=== PATIENT | female | born 1970 | race Caucasian/White ===

== ENCOUNTER 2018-01-25 12:08 | Outpatient (REF) | payer OTHER, SELFPAY ==
[2018-01-25 19:16] LABS: Iron 80 ug/dL (50-175); Total Iron Binding Capacity 301 ug/dL (250-450); Transferrin Sat 27 % (15-50)
[2018-01-25 19:18] LABS: Hemoglobin A1C 5.3 % (4.5-6.2)
[2018-01-25 19:46] LABS: ALT 27 U/L (12-78); AST 27 U/L (15-37); Albumin 3.6 g/dL (3.4-5.0); Alkaline Phosphatase 54 U/L (46-116); Anion Gap 9.9 mmol/L (3-11); BUN 12 mg/dL (7-18); Bilirubin, Total 0.5 mg/dL (0.2-1.0); CO2 28.1 mmol/L (21.0-32.0); CREATININE 0.76 mg/dL (0.55-1.02); Chloride 105 mmol/L (98-107); Ferritin 83 ng/mL (8-388); Glucose 89 mg/dL (70-100); Magnesium 2.1 mg/dL (1.8-2.4); Potassium 4.1 mmol/L (3.5-5.1); Sodium 143 mmol/L (136-145); Total Protein 6.8 g/dL (6.4-8.2)
[2018-01-25 20:12] LABS: Folate > 20.0 ng/mL (8.6-20.0); Vitamin B12 > 2000 pg/mL (193-986)
[2018-01-25 20:21] LABS: PHOSPHORUS 3.8 mg/dL (2.6-4.7)
== END 2018-01-25 12:28 ==
LOC: NCHCN 12:08
PROVIDERS: PCP Physician Assistant Medical; Visit Provider Physician Assistant Medical
DX: Z98.84 Bariatric surgery status (principal); E03.9 Hypothyroidism, unspecified
CPT/HCPCS: 80053; 82607; 82728; 82746; 83036; 83540; 83550; 83735; 84100

== ENCOUNTER 2018-03-11 00:38 | Outpatient (CLI) | payer OTHER, SELFPAY ==
--- NOTE | 2018-03-11 12:37 | DI.US_ITS ---
SYMPTOM/DIAGNOSIS: MENORRHAGIA, N92.0 PELVIC ULTRASOUND: Transabdominal and transvaginal examination was performed. The uterus is heterogeneous and measures 7.8 cm long x 5 cm AP x 5.4 cm transverse. The uterus is retroverted. There are several hypoechoic and isoechoic masses within the uterus. The largest is seen in the posterior body and measures 2.3 cm maximally. These likely reflect fibroids. The endometrial stripe is within normal limits at 0.5 cm. The right ovary is unremarkable and measures 1.8 x 1.4 x 1.9 cm. There is blood flow seen to the right ovary. No evidence of torsion is present. The left ovary measures 2.7 x 1.2 x 2.2 cm. There is a 1.3 x 1.3 x 0.9 cm hypoechoic avascular non shadowing lesion in the left ovary. There is normal blood flow to the left ovary. No evidence of torsion is seen. No free pelvic fluid or hydronephrosis is identified. IMPRESSION: 1. Fibroid uterus 2. 1.3 cm hypoechoic region in the left ovary. This may represent a hemorrhagic or infected cyst. Solid mass cannot be excluded. Follow up pelvic ultrasound in 6-8 weeks is recommended for further evaluation.
== END 2018-03-11 00:58 ==
PROVIDERS: PCP Physician Assistant Medical; Visit Provider Nurse Practitioner Family
DX: N92.0 Excessive and frequent menstruation with regular cycle (principal); D25.9 Leiomyoma of uterus, unspecified; N83.292 Other ovarian cyst, left side
CPT/HCPCS: 76830; 76856

== ENCOUNTER 2018-03-28 09:46 | Outpatient (CLI) | payer OTHER, SELFPAY ==
[2018-03-28 10:51] LABS: HCT 42.5 % (36.0-46.0); HGB 14.2 g/dL (12.0-15.5); Mean Corp. HGB Concentration 33.4 g/dL (32.0-36.0); Mean Corpuscular Hemoglobin 30.1 pg (27.0-33.0); Mean Platelet Volume 11.4 fL (8.0-11.0); Platelet Count 282 x1000/uL (130-400); RBC 4.72 m/cumm (4.00-5.20); RBC Distribution Width 12.6 % (11.7-14.6); White Blood Cell Count 8.14 k/cumm (4.4-10.8)
[2018-03-28 11:00] LABS: Bilirubin Negative (Negative); Blood Negative (Negative); Clarity Clear; Glucose Negative (Negative); Ketones Negative (Negative); Leukocyte Esterase Negative (Negative); Nitrite Negative (Negative); Specific Gravity 1.025 (1.005-1.025); pH 6.5 (5-8)
[2018-03-28 14:51] LABS: HCG Quant, Pregnancy < 1 mIU/mL (1-3)
== END 2018-03-28 10:06 ==
LOC: PRC 09:47 → DSU 09:49
PROVIDERS: PCP Physician Assistant Medical; Visit Provider Obstetrics & Gynecology
DX: D25.9 Leiomyoma of uterus, unspecified (principal); N92.0 Excessive and frequent menstruation with regular cycle; I10 Essential (primary) hypertension; E03.9 Hypothyroidism, unspecified; Z01.818 Encounter for other preprocedural examination
CPT/HCPCS: 36415; 85027; 86850; 86900; 86901; 81003; 84702; 93005; 93010

== ENCOUNTER 2018-04-03 10:13 | Observation (INO) | payer OTHER, SELFPAY ==
--- NOTE | 2018-03-28 15:31 | HPE_ITS ---
Date of service: 04/03/18 Assessment and Plan (1) Uterine fibroid: Current visit: Yes Status: Acute Uterine fibroids causing menorrhagia Plan: Total Vaginal Hysterectomy with Bilateral Salpingectomy. Pt is aware that if we are not able to remove the uterus vaginally she may need to have a laparoscopy or laparotomy to completethe procedure. Pt expressed understanding and wants to proceed. History of Present Illness Chief Complaint: heavy periods Narrative: 47yo WF with LMP who has been followed for many yrs for menorrhagia. Pt had pelvic sono several yrs ago and was diagnosed with uterine fibroids. Pt states she is tiered of dealing with the heavy periods and is ready to have a permanent procedure done. Due to the diagnosis of uterine fibroids Pt is not a candidate for endometrial ablation and she did not want uterine artery embolization. Pt therefore wants to have a hysterectomy for her menorrhagia anduterine fibroids. The procedure was explained, risks were discussed and all questions were answered. Pt expressed understanding and wants to proceed with the suregery. 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) Surgical History S/P section (Acute) Status post bariatric surgery (Acute) Hx of breast reduction, elective (Acute) Hx of cholecystectomy (Chronic) Family History Mother Stroke Thyroid disease Father Hypertension Maternal Aunt Breast cancer Social History marital status: number of children: 2 Smoking/Tobacco Use Status: Never alcohol intake: current alcohol intake frequency: holidays/special occasions only Female Reproductive History Menstrual control method: permanent sterilization History History 2 Para 2 Hx # Term Pregnancies Multiple births Hx # Pregnancies Ectopic pregnancies AB induced Hx Number of Living Children AB spontaneous Meds Home Medications Medication Instructions Recorded Confirmed Type levothyroxine 137 mcg tablet 137 mcg PO DAILY 02/21/18 03/28/18 History metoprolol succinate ER 50 mg 50 mg PO DAILY 02/21/18 03/28/18 History tablet,extended release 24 hr biotin 10,000 mcg disintegrating 10,000 mcg PO DAILY 03/28/18 03/28/18 History tablet cholecalciferol (vitamin D3) 1,000 1,000 unit PO DAILY 03/28/18 03/28/18 History unit capsule cholecalciferol (vitamin D3) 2,000 2,000 unit PO DAILY 03/28/18 03/28/18 History unit capsule ferrous sulfate 325 mg (65 mg 325 mg PO DAILY tab 03/28/18 03/28/18 History iron) tablet vitamin B complex tablet 1 tab PO DAILY 03/28/18 03/28/18 History Allergies Allergy/AdvReac Type Severity Reaction Status Date / Time latex Allergy burning Verified 03/28/18 09:59 rash Sulfa (Sulfonamide Allergy Verified 03/28/18 15:15 Antibiotics) hydrocodone bitartrate AdvReac Severe vomiting Verified 03/14/18 15:49 [From Vicodin] oxycodone HCl [From Percocet] AdvReac Severe vomiting Verified 03/14/18 15:49 Exam Const General: cooperative, comfortable and no acute distress Nutritional Appearance: well nourished [facility] Head: normal to inspection and normocephalic General nose exam: external nose normal Face and sinus: normal facial exam Eyes General: appearance normal, both eyes and all related structures Alignment and Position: alignment normal EOM: EOM intact bilaterally Neck Neck: normal visual inspection, full ROM and no lymphadenopathy Thyroid: thyroid normal Chest Chest: normal inspection of the chest Breast inspection: normal inspection of the breasts and normal inspection of the axillae Breast palpation: normal palpation of the breasts Resp Effort & Inspection: normal respiratory effort Auscultation: clear to auscultation bilaterally Cardio Jugular venous pressure: no JVD Rate: regular rate Rhythm: regular rhythm GI Inspection: normal to inspection Palpation: soft and no hepatosplenomegaly Auscultation: normal bowel sounds External Female Exam: external appearance normal Speculum Exam - Vagina: normal appearance of the vagina Speculum Exam - Cervix: normal appearance of the cervix Bimanual Exam- Vagina & Uterus: normal bimanual exam Bimanual Exam- Adnexa, other: normal adnexae Back/Spine/Pelvis Back: no CVA tenderness Cervical Spine: normal cervical lordosis Thoracic/Lumbar Spine: thoracic and lumbar spine normal to inspection Skin General skin exam: no rashes or lesions noted Neuro General: alert, oriented x3 and CN's II-XI intact bilaterally Speech: speech normal Extrem General: normal to inspection Psych Appearance: grossly normal Mental Status: mental status grossly normal Mood: congruent mood Affect: normal affect Attitude: cooperative
[2018-04-03] VITALS (15 sets, daily range): BP systolic 92–134; BP diastolic 52–82; PULSE 45–66; RESP 14–20; TEMP 35.8–37.7; O2SAT 95–100
[2018-04-03] MEDS: Lactated Ringers 1,000 ML 125 ML IV ×3 (06:51→12:21)
[2018-04-03] MEDS: Celecoxib 200 MG CAP 400 MG PO (07:21)
[2018-04-03] MEDS: Acetaminophen 500 MG TAB 1000 MG PO (07:22)
[2018-04-03] MEDS: Gabapentin 300 MG CAP 600 MG PO (07:22)
--- NOTE | 2018-04-03 09:06 | UTER_PTH ---
PATIENT: Mariana Ricks LOC: U#:[id number] AGE/SX: 47/F ROOM: 229 RE04/03/[address]: Peri Schultz MD : [id number] BED: A DIS: 04/04/2018 SPEC #: [id number] RECD: 04/03/18 12:25 STATUS: DAVID REKatie #: [id number] TETE: 04/03/18 09:[address]: Peri Schultz DEPT: Surgical Specimen RECD BY: Samara Huerta ENTERED: 04/03/18 12:28 SP TYPE: UTER OTHR DR: Tamar Bell Tissues: 1 - UTERUS W OR W/O OVARIES(NOT TUMOR/PROLAPSE) 2 - FALLOPIAN TUBE (OTHER) Procedures: GROSS AND MICRO LEVEL 5 Comments: [id number]
--- NOTE | 2018-04-03 10:41 | W.PM.OP ---
Date of service: 04/03/18 Time of Service: 10:00 Operative Note DATE OF PROCEDURE: 04/03/18 PRE-OP DIAGNOSIS: Uterine Fiboids, Menorrhagia POST-OP DIAGNOSIS: same PROCEDURE: Total Vaginal Hysterectomy Bilateral salpingectomy SURGEON: Peri Schultz SHIRT HEMMER: Lani Bruno ESTIMATED BLOOD LOSS: 350 PATHOLOGY: other (uterus, right and left fallopian tubes) TOURNIQUET TIME: 0 COMPLICATIONS: None Patient was transported to: observation Patient's condition: stable Indications: Continued menorrhagia secondary to uterine fibroids Findings: Normal size, boggy uterus Procedure Description: The Patient was laid in a supine position and then General anesthesia with endotracheal intubation was perforemed. The Patient was then repositioned in a dorsolithotomy position on Be Stir-ups and prepped and draped in the usual sterile fashion. Pt had compression stockings in place through out the procedure. A weighted speculum was introduced into the vagina and teneculums were used to grasp the anterior and posterior lip of the cervix. The cervix was then circumscribed sharply with a knife. The posterior cul de sac was entered and a stay suture of 0 vicryl suture was placed. I was not able to enter the anterior cul de sac initially. So I grasped the left uteral sacral ligament with a curved roberto , cut it sharply with a knife and ligated it with a stitch of 0 vicryl suture. Curved roberto clamps and 0 vicryl suture were used throughout the procedure except on the peritoneum. This same procedure was repeated on the right side. I finally entered the anterior cul de sac and a right angle retractor was placed. Then in a systematic fashion working first on the left side and then on the right side, the uterine vessels, the cardinal ligaments and the rest of parametrium was clamped, cut and ligated until the the tubo-ovarian ligament was reached. Was the tubo-ovarian ligament on the left side was reached it was clamped and ligated x 3. The first 2 were bango ties and the third was a roberto stitch. This same procedure was repeated on the right side. The uterus was removed in total. Attention was then turned to the bilateral salpingectomy. Starting on the right side, the fallopian tube was entirely visualized but was noted to adherent to the side wall and ovary, therefore it had to be lysed away from the ovary and the side wasll and this was done with electro cautery. Once the fallopian tube was freed an roberto clamp was placed at the base and the fallopian tube was cut off and the base was ligated with 0 vicryl suture. Hemostasis was assured. The same procedure was repeated on the left side since the fallopian tube was adherent to the side wall as well. Careful inspection of the side christine and pedicles was done and hemostatsis was assured. The peritonium was then re-approximated using 3-0 vicryl suture in an purse string fashion making sure to externalize the pedicles. The vaginal cuff was then closed by putting an 0 vicryl suture, in a figure of 8 fashion around each of the utero sacral ligaments. The rest of the cuff was then closed using interrupted figure of 8s of the same suture. The procedure was then completed. A meraz catheter was placed and lots of clear urine was obtained. A vaginal pack coated premarin was placed into the vagina. There were no complications. The Patient tolerated the procedure well. EBL 350cc. Sponge, needle and instrument counts were correct. Patient was transferred to the recovery room in stable satisfactory condition.
--- NOTE | 2018-04-03 10:53 | ROE_ITS ---
Date of service: 04/03/18 Time of Service: 10:00 Operative Note DATE OF PROCEDURE: 04/03/18 PRE-OP DIAGNOSIS: Uterine Fiboids, Menorrhagia POST-OP DIAGNOSIS: same PROCEDURE: Total Vaginal Hysterectomy Bilateral salpingectomy SURGEON: Peri Schultz SURVEYING CREW RODMAN: Lani Bruno ESTIMATED BLOOD LOSS: 350 PATHOLOGY: other (uterus, right and left fallopian tubes) TOURNIQUET TIME: 0 COMPLICATIONS: None Patient was transported to: observation Patient's condition: stable Indications: Continued menorrhagia secondary to uterine fibroids Findings: Normal size, boggy uterus Procedure Description: The Patient was laid in a supine position and then General anesthesia with endotracheal intubation was perforemed. The Patient was then repositioned in a dorsolithotomy position on Be Stir-ups and prepped and draped in the usual sterile fashion. Pt had compression stockings in place thr ough out the procedure. A weighted speculum was introduced into the vagina and teneculums were used to grasp the anterior and posterior lip of the cervix. The cervix was then circumscribed sharply with a knife. The posterior cul de sac was entered and a stay suture of 0 vicryl suture was placed. I was not able to enter the anterior cul de sac initially. So I grasped the left uteral sacral ligament with a curved roberto , cut it sharply with a knife and ligated it with a stitch of 0 vicryl suture. Curved roberto clamps and 0 vicryl suture were used throughout the procedure except on the peritoneum. This same procedure was repeated on the right side. I finally entered the anterior cul de sac and a right angle retractor was placed. Then in a systematic fashion working first on the left side and then on the right side, the uterine vessels, the cardinal ligaments and the rest of parametrium was clamped, cut and ligated until the the tubo- ovarian ligament was reached. Was the tubo-ovarian ligament on the left side was reached it was clamped and ligated x 3. The first 2 were bango ties and the third was a roberto stitch. This same procedure was repeated on the right side. The uterus was removed in total. Attention was then turned to the bilateral salpingectomy. Starting on the right side, the fallopian tube was entirely visualized but was noted to adherent to the side wall and ovary, therefore it had to be lysed away from the ovary and the side wasll and this was done with electro cautery. Once the fallopian tube was freed an roberto clamp was placed at the base and the fallopian tube was cut off and the base was ligated with 0 vicryl suture. Hemostasis was assured. The same procedure was repeated on the left side since the fallopian tube was adherent to the side wall as well. Careful inspection of the side christine and pedicles was done and hemostatsis was assured. The peritonium was then re-approximated using 3-0 vicryl suture in an purse string fashion making sure to externalize the pedicles. The vaginal cuff was then closed by putting an 0 vicryl suture, in a figure of 8 fashion around each of the utero sacral ligaments. The rest of the cuff was then closed using interrupted figure of 8s of the same suture. The procedure was then completed. A meraz catheter was placed and lots of clear urine was obtained. A vaginal pack coated premarin was placed into the vagina. There were no complications. The Patient tolerated the procedure well. EBL 350cc. Sponge, needle and instrument counts were correct. Patient was transferred to the recovery room in stable satisfactory condition.
[2018-04-03] MEDS: Ketorolac 30 MG/ML VIAL IVP ×2 (16:15→23:45)
[2018-04-03] MEDS: Normal Saline Flush 10 ML SYR IV (16:16)
--- NOTE | 2018-04-03 17:15 | W.PM.PROGNOT ---
Date of Service Date of service: 04/03/18 Time of Service: 17:16 Assessment and Plan (1) Post-operative state: Start date: 04/03/18 Current visit: Yes Status: Acute POD # 0 doing well. Will continue to monitor and hopefully d/c home in am. Subjective Patient reports: no new complaints, feels better and pain is less Objective Objective Clinical Data: Vital Signs Temperature 98.4 F 04/03/18 16:01 Temperature Source Tympanic 04/03/18 16:01 Pulse 52 L 04/03/18 16:01 Pulse Rhythm Regular 04/03/18 12:20 Respiratory Rate 20 04/03/18 16:01 Respiratory Effort Non-Labored 04/03/18 12:20 Respiratory Depth Deep 04/03/18 12:20 Respiratory Pattern Normal 04/03/18 12:20 Blood Pressure 134/79 04/03/18 16:01 Pulse Oximetry 99 04/03/18 16:01 Respiratory End-tidal CO2 35 04/03/18 11:52 Oxygen Delivery Method Room Air 04/03/18 16:01 Oxygen Flow Rate 0 04/03/18 16:01 Pain Level 5 04/03/18 16:15 Intake & Output 04/02/18 04/03/18 04/03/18 23:59 11:59 23:59 Intake Total 1090 / 1759.333 669.333 / 1759.333 Output Total 825 / 1075 250 / 1075 Balance 265 / 684.333 419.333 / 684.333 Weight 172 lb 6.424 oz Intake: IV 1050 / 1719.333 669.333 / 1719.333 Oral 40 / 40 Output: Urine 475 / 725 250 / 725 Estimated Blood Loss 350 / 350 Other: Urine Color Yellow Yellow Urine Appearance Clear Clear Comment Murguia d/c'd per Pt request. Emesis Description None I was notified earlier in the afternoon that Pt had a low BP and was lethargic. Went to see her and she was alert, oriented x 3 and only c/o of slight pelvic pressure. Her BP 114/64, which is what she was running during the surgery. Therefore just ordered forher IV to be increased to 150 cc/hr. Pt now alert, talking with family. States feels much better but is not hungry.
[2018-04-03] MEDS: Lactated Ringers 1,000 ML 150 ML IV (19:33)
[2018-04-04] MEDS: Lactated Ringers 1,000 ML 150 ML IV (01:23)
--- NOTE | 2018-04-04 01:53 | NUR.NOTE ---
Nursing Note: 7P to 7A Shift: Pt is alert and oriented Needs supervision to bathroom due to IV pools. Complained of 6/10 pain ad toradol IVP was given and able to sleep. Continuous POx observed. O2 Sat is within 95 to 100% at room air. Latest temp is 37.5.Needs attended.call lights at reach.
--- NOTE | 2018-04-04 08:16 | W.PM.PROGNOT ---
Date of Service Date of service: 04/04/18 Time of Service: 08:17 Subjective Patient reports: no new complaints, feels better and tolerating a regular diet Interval history since last seen: Pt states she is doing well and is ready to go home. Adds that she does not need any pain medication. Exam Const General: cooperative, comfortable and no acute distress Resp Auscultation: clear to auscultation bilaterally Cardio Rate: regular rate Rhythm: regular rhythm Other: Vaginal pack removed and only slight amount of old blood noted. Objective Objective Clinical Data: Vital Signs Temperature 99.3 F 04/03/18 23:52 Temperature Source Tympanic 04/03/18 23:52 Pulse 56 L 04/03/18 23:52 Pulse Rhythm Regular 04/03/18 21:52 Respiratory Rate 18 04/03/18 23:52 Respiratory Effort Non-Labored 04/03/18 21:52 Respiratory Depth Deep 04/03/18 21:52 Respiratory Pattern Normal 04/03/18 21:52 Blood Pressure 133/79 04/03/18 23:52 Pulse Oximetry 96 04/03/18 23:52 Respiratory End-tidal CO2 35 04/03/18 11:52 Oxygen Delivery Method Room Air 04/03/18 23:52 Oxygen Flow Rate 0 04/03/18 23:52 Pain Level 6 04/03/18 23:45 Intake & Output 04/03/18 04/03/18 04/04/18 11:59 23:59 11:59 Intake Total 1090 / 2841.417 1751.417 / 2841.417 875 / 875 Output Total 825 / 1375 550 / 1375 200 / 200 Balance 265 / 0418.090 6241.417 / 1466.417 675 / 675 Weight 172 lb 6.424 oz Intake: IV 1050 / 2321.417 1271.417 / 2321.417 875 / 875 Oral 40 / 520 480 / 520 Output: Urine 475 / 1025 550 / 1025 200 / 200 Estimated Blood Loss 350 / 350 Other: Urine Color Yellow Yellow Yellow Urine Appearance Clear Clear Clear Comment Murguia d/c'd per Pt request. Emesis Description None Voiding Methods Toilet
--- NOTE | 2018-04-04 14:12 | PDOC.CMIN ---
- If Service Date Differs Date of service: 04/04/18 Time of Service: 14:12 Care Management Initial Assess REASON FOR HOSPITALIZATION:: S/P [facility] PAST MEDICAL HISTORY/PAST SURGICAL HISTORY:: Uterine fibroid (Acute). Hypertension (Chronic). Menorrhagia (Acute 09/02/13). Hypothyroidism, acquired (Acute 09/10/13). 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 S/P section (Acute). Status post bariatric surgery (Acute). Hx of breast reduction, elective (Acute). Hx of cholecystectomy (Chronic) PREVIOUS FUNCTIONAL STATUS/SOCIAL/FAMILY SUPPORTS:: Mariana resides with her Missael in [place]. She is independent at baseline, drives, and manages [employer] CURRENT FUNCTIONAL STATUS:: Currently Mariana is lying in bed, pleasant and receptive to discussion. ADVANCE DIRECTIVES:: None on file Has patient been provided with information about the portal?: Yes Did the patient sign up for the portal?: No CODE STATUS:: Full Code INSURANCE COVERAGE / FINANCIAL ISSUES:: Sandra CURRENT HOME/COMMUNITY SERVICES/EQUIPMENT:: Currently Mariana has no services or medical equipment in the community. PRIMARY CARE PHYSICIAN:: Tamar Bell POTENTIAL DISCHARGE NEEDS:: F/U appointment with Peri Schultz PATIENT/FAMILY EDUCATION NEEDS:: Review DC instructions, any limitations, and ongoing DC planning discussion. Discuss 'Ask Me Three' ANTICIPATED BARRIERS TO DISCHARGE:: None identified at this time TRANSPORTATION:: via private vehicle PLAN:: Mariana will return home with no anticipated services. She will F/U with Dr. Schultz and plan of care as prescribed. Mariana will transport via private vehicle.
--- NOTE | 2018-04-04 14:25 | CMDISCH_ITS ---
- If Service Date Differs Date of service: 04/04/18 Time of Service: 14:24 LACE Index Scoring Tool - Questions: Length of Stay (in days): 2 Acuity (Admit via E.D.?): No E.D. Visits: 0 - Answers: Total Score: 2 Risk of Readmission: Low Risk Care Management Discharge Reason for Hospitalization: S/P [facility] Discharge Plan: Mariana will return home with no anticipated services. She will F/U with Dr. Schultz and plan of care as prescribed. Mariana will transport via private vehicle. Patient/Family Education Needs: Review DC instructions, any limitations, and discuss 'Ask Me Three'
== END 2018-04-04 10:05 | disposition home or self-care (01) ==
LOC: SUR 10:39 → MS 11:39
PROVIDERS: Admitting Provider Obstetrics & Gynecology; PCP Physician Assistant Medical; Visit Provider Obstetrics & Gynecology
PROC: 0UT97ZZ Resection of Uterus, Via Natural or Artificial Opening (ICD-10-PCS; CPT 58260; principal; 2018-04-03 07:30)
DX: D25.1 Intramural leiomyoma of uterus (principal); E03.9 Hypothyroidism, unspecified; I10 Essential (primary) hypertension; N92.0 Excessive and frequent menstruation with regular cycle
CPT/HCPCS: 58262; NC; 88304; 88307; G0378; J0690; J1100; J1885; J2250; J2405; J2765

== ENCOUNTER 2018-07-24 17:44 | Outpatient (REF) | payer OTHER, SELFPAY ==
[2018-07-24 19:57] LABS: Abs Immature Grans 0.01 k/cumm (0.0-0.09); Absolute Basophil Count 0.02 k/cumm (0.0-0.2); Absolute Eosinophil Count 0.09 k/cumm (0.0-0.7); Absolute Lymphocyte Count 2.65 k/cumm (1.2-3.4); Absolute Neutrophil Count 4.16 k/cumm (1.2-6.7); Basophils % 0.3; Eosinophils % 1.2; HCT 41.2 % (36.0-46.0); HGB 13.5 g/dL (12.0-15.5); Immature Grans % 0.1; Lymphocytes % 35.2; Mean Corp. HGB Concentration 32.8 g/dL (32.0-36.0); Mean Corpuscular Hemoglobin 29.7 pg (27.0-33.0); Mean Corpuscular Volume 90.7 fL (80-95); Mean Platelet Volume 11.8 fL (8.0-11.0); Neutrophils % 55.2; Platelet Count 290 x1000/uL (130-400); RBC 4.54 m/cumm (4.00-5.20); RBC Distribution Width 12.5 % (11.7-14.6); White Blood Cell Count 7.53 k/cumm (4.4-10.8)
[2018-07-24 20:08] LABS: Iron 46 ug/dL (50-175); Total Iron Binding Capacity 323 ug/dL (250-450); Transferrin Sat 14 % (15-50)
[2018-07-24 20:41] LABS: ALT 16 U/L (12-78); AST 13 U/L (15-37); Albumin 3.5 g/dL (3.4-5.0); Alkaline Phosphatase 58 U/L (46-116); Anion Gap 7.1 mmol/L (3-11); BUN 18 mg/dL (7-18); Bilirubin, Total 0.3 mg/dL (0.2-1.0); CO2 28.9 mmol/L (21.0-32.0); CREATININE 0.84 mg/dL (0.55-1.02); Calcium 8.8 mg/dL (8.5-10.1); Chloride 104 mmol/L (98-107); Cholesterol 164 mg/dL (50-200); Ferritin 74 ng/mL (8-388); Glucose 78 mg/dL (70-100); HDL Cholesterol 61 mg/dL (40-60); LDL CHOLESTEROL 90 mg/dL (<100); Magnesium 2.1 mg/dL (1.8-2.4); Potassium 4.7 mmol/L (3.5-5.1); Sodium 140 mmol/L (136-145); TSH 0.49 uIU/mL (0.358-3.74); Total Protein 6.9 g/dL (6.4-8.2); Triglyceride 69 mg/dL (30-150); Vitamin B12 1259 pg/mL (193-986)
[2018-07-24 20:44] LABS: Folate > 20.0 ng/mL (8.6-20.0)
[2018-07-24 20:54] LABS: PHOSPHORUS 4.7 mg/dL (2.6-4.7)
[2018-07-24 20:56] LABS: Hemoglobin A1C 5.2 % (4.5-6.2)
== END 2018-07-24 18:04 ==
LOC: NCHCN 17:44
PROVIDERS: PCP Physician Assistant Medical; Visit Provider Physician Assistant Medical
DX: K91.2 Postsurgical malabsorption, not elsewhere classified (principal); E55.9 Vitamin D deficiency, unspecified; Z98.84 Bariatric surgery status; E03.9 Hypothyroidism, unspecified; I10 Essential (primary) hypertension
CPT/HCPCS: 80053; 80061; 82306; 83721; 82607; 82728; 82746; 83036; 83540; 83550; 83735; 84100; 84443; 85025

== ENCOUNTER 2019-01-20 01:02 | Outpatient (CLI) | payer OTHER, SELFPAY ==
--- NOTE | 2019-01-20 16:15 | DI.MAMMO_ITS ---
EXAM: MG MAMMO SCREENING CLINICAL HISTORY: [facility] Z00.00, SCREENING TECHNIQUE: Mammograms were interpreted according to the usual protocol including computer analysis w Flowge[employer] system, tomosynthesis and C-view imaging. FINDINGS: The breasts are of moderate density with fairly symmetrical distribution of fibroglandular tissue. No dominant mass or clumped microcalcification is identified in either breast. Current examination is c ompared with previous examinations including June 2016 and there has been no gross interval change i n appearance in comparison with the previous studies. IMPRESSION: No specific evidence of malignancy at this time. Routine screening examinations are suggested at y early intervals due to the family history of breast carcinoma. Category 1. Breast density, category B. BI-RADS Cat 1 - Negative. Breast Density - Category B - Scattered areas of fibroglandular density.
== END 2019-01-20 01:22 ==
PROVIDERS: PCP Physician Assistant Medical; Visit Provider Physician Assistant Medical
DX: Z12.31 Encounter for screening mammogram for malignant neoplasm of breast (principal); Z80.3 Family history of malignant neoplasm of breast
CPT/HCPCS: 77063; 77067

== ENCOUNTER 2021-06-23 20:18 | Outpatient (REF) | payer OTHER, SELFPAY | END 2021-06-23 20:19 | disposition home or self-care (01) | LOC: LBN 20:18 | PROVIDERS: PCP Physician Assistant Medical; Visit Provider Nurse Practitioner Gerontology | DX: N39.0 Urinary tract infection, site not specified (principal) | CPT/HCPCS: 87077; 87086; 87186 ==

== ENCOUNTER 2021-06-28 17:17 | Outpatient (REF) | payer OTHER, SELFPAY ==
[2021-06-29 01:04] LABS: COVID-19 RT-PCR UVMMC Result Negative (Negative)
== END 2021-06-28 17:18 | disposition home or self-care (01) ==
LOC: LBN 17:17
PROVIDERS: PCP Physician Assistant Medical; Visit Provider Obstetrics & Gynecology
DX: Z20.822 Contact with and (suspected) exposure to COVID-19 (principal)
CPT/HCPCS: U0003

== ENCOUNTER 2021-08-03 20:35 | Outpatient (REF) | payer OTHER, SELFPAY ==
[2021-08-04 02:22] LABS: COVID-19 RT-PCR UVMMC Result Negative (Negative)
== END 2021-08-03 20:36 | disposition home or self-care (01) ==
LOC: LBN 20:35
PROVIDERS: Nurse Anesthetist, Certified Registered; PCP Physician Assistant Medical
DX: Z20.822 Contact with and (suspected) exposure to COVID-19 (principal)
CPT/HCPCS: U0003

== ENCOUNTER 2021-08-11 08:00 | Outpatient (CLI) | payer OTHER, SELFPAY ==
[2021-08-11 10:48] LABS: Source Nasal/Nares
[2021-08-11 14:11] LABS: COVID-19 PCR Negative (Negative)
== END 2021-08-11 08:01 | disposition home or self-care (01) ==
LOC: LBO 08:00
PROVIDERS: PCP Physician Assistant Medical; Visit Provider Obstetrics & Gynecology
DX: Z20.822 Contact with and (suspected) exposure to COVID-19 (principal)
CPT/HCPCS: 87635

== ENCOUNTER 2021-12-20 12:00 | Outpatient (REF) | payer OTHER, SELFPAY | END 2021-12-20 12:01 | disposition home or self-care (01) | LOC: LBN 12:00 | PROVIDERS: PCP Physician Assistant Medical; Visit Provider Urology | DX: R31.9 Hematuria, unspecified (principal) | CPT/HCPCS: 87086 ==

== ENCOUNTER → 2022-03-07 02:00 | Outpatient (CLI) | payer OTHER, SELFPAY ==
--- NOTE | 2022-03-07 07:30 | DI.MRI_ITS ---
Exam(s) MR UPPER EXTREMITY RT WO EXAM: MR UPPER EXTREMITY RT WO CLINICAL HISTORY: RIF MASS, PAIN,mass rt hand, r22.31 TECHNIQUE: Multiplanar multisequence MRI was performed without intravenous contrast. COMPARISON: CR XR FINGER RIGHT from 02/18/2022 FINDINGS: BONES/JOINTS: No fracture or contusion pattern. No bone lesions identified. MUSCULOTENDINOUS STRUCTURES: The muscles show normal signal and size. No muscular fatty atrophy. SOFT TISSUES: There is a 4.6 mm long area of hypointense signal on the T2 and T1 weighted images at t he ulnar aspect of the PIP joint of the right index finger. This corresponds to the calcifications s een on the x-ray from 02/18/2022. The ulnar PIP collateral ligament is not well visualized and may b e torn. The radial PIP collateral ligament appears intact. No soft tissue mass is identified. OTHER FINDINGS: There is a 3.6 mm hypointense body in the soft tissues anterior to the distal phalanx of the ring finger. This may represent a foreign body. IMPRESSION: 1. No soft tissue mass or abnormal fluid collection. 2. 4.6 mm long hypointense signal at the ulnar aspect of the PIP joint of the right index finger whic h corresponds to the soft tissue calcification on the x-ray.This may reflect prior injury. 3. Nonvisualization of the ulnar collateral ligament of the PIP joint. This may represent ligament t ear. 4. No osseous lesion is identified. 5. 3.6 mm hypointense body in the soft tissues anterior to the distal phalanx of the right ring finge r which may represent a foreign body. Please correlate with the physical exam and clinical history. DATA REPOSITORY:
== END ==
PROVIDERS: PCP Physician Assistant Medical; Visit Provider Student in an Organized Health Care Education/Training Program
DX: R22.31 Localized swelling, mass and lump, right upper limb (principal); R93.89 Abnormal findings on diagnostic imaging of other specified body structures
CPT/HCPCS: 73218

== ENCOUNTER 2022-04-19 06:06 | Day surgery (SDC) | payer OTHER, SELFPAY ==
[2022-04-19 06:15] VITALS: BP 172/104; PULSE 96; RESP 18; TEMP 36.5; O2SAT 99
--- NOTE | 2022-04-19 07:33 | W.PM.DSUDISC ---
Date of service: 04/19/22 Time of Service: 07:35 Discharge Plan Disposition Patient Disposition: Home Condition: Good Discharge Details Reason For Visit: Right Index Finger Mass Attending Provider: Leobardo Tan Primary Care Provider: Tamar Bell Home Meds and New Rx's Prescriptions: New acetaminophen 500 mg tablet 500 mg PO Q6H PRN PRN (Reason: pain) Qty: 40 3RF ibuprofen 600 mg tablet 600 mg PO TID PRN (Reason: pain) Qty: 30 3RF Continued metoprolol succinate 50 mg tablet extended release 24 hr 50 mg PO DAILY levothyroxine [Synthroid] 137 mcg tablet 137 mcg PO DAILY cholecalciferol (vitamin D3) 2,000 unit capsule 2,000 unit PO DAILY cholecalciferol (vitamin D3) 1,000 unit capsule 1,000 unit PO DAILY vitamin B complex [B Complex-Vitamin B12] tablet 1 tab PO DAILY ferrous sulfate [Feosol] 325 mg (65 mg iron) tablet 325 mg PO DAILY biotin 10,000 mcg tablet,disintegrating 10,000 mcg PO DAILY flu vacc [id number] 6mos up(PF) 60 mcg (15 mcg x 4)/0.5 mL syringe 0.5 ml IM ONCE Qty: 0.5 0RF phenazopyridine [Pyridium] 100 mg tablet 100 mg PO TID PRN (Reason: pain) Qty: 10 0RF Discharge Instructions Additional Instructions: Activity: You may use the hand as tolerated. Light use of the index finger is okay but avoid doing too much too soon. You may apply ice. Dressings: You should keep the initial dressing on for 48 hours. After this, you may remove the dressing, get the wound wet and cover with a bandaid. Follow-up: 7-10 days. Activity:: Elevate Remove Dressings/Wound Care:: 48 hours Shower/Bathe:: 48 hours Diet:: As Tolerated Discharge Orders Discharge Orders: Discharge Order (Routine); Ordered 04/19/22 Ordered By: Leobardo Tan
[2022-04-19] MEDS: Lidocaine 1% Multi-Dose 10 ML VIAL (07:40)
[2022-04-19] MEDS: Sodium Bicarbonate 50 MEQ/50 ML VIAL (07:40)
[2022-04-19 07:58] VITALS: BP 172/107; PULSE 63; RESP 18; TEMP 36; O2SAT 100
--- NOTE | 2022-04-19 09:31 | W.PM.OP ---
Date of service: 04/19/22 Time of Service: 07:45 Operative Note Operative Note DATE OF PROCEDURE: 04/19/22 PRE-OP DIAGNOSIS: Right Index Finger Mass POST-OP DIAGNOSIS: same (Right Index Finger Dystrophic Calcification) PROCEDURE: Excision of Right Index Finger Mass (~1cm) SURGEON: Leobardo Tan ANESTHESIA TYPE: Local By Surgeon Refer to Anesthesia Record ESTIMATED BLOOD LOSS: 5 PATHOLOGY: none sent COMPLICATIONS: None Patient was transported to: same day Patient's condition: stable Indications: I have seen Mariana in clinic for symptoms mass about the ulnar aspect of the right index finger. The mass persisted and caused pain to direct contact and with use. There are some calcification seen on the x-ray and MRI confirmed that this was calcification without any significant soft tissue component to suggest malignancy. It was unclear whether this was dystrophic calcification versus foreign body reaction. Nevertheless, this was painful and prominent and she desired to have removed. I reviewed the risks of the procedure to include, but not limited to, bleeding, infection, pain, stiffness, recurrence, damage to nerves or vessels. Despite these risks, the patient elected to proceed. Findings: There is a rounded area of about 1 cm in diameter located over the base of the middle phalanx of the ulnar aspect of the index finger. Once in size there was a thick, white liquid material consistent with dystrophic calcification. This was removed and hole in the cystic capsule was also removed. Procedure Description: Mariana was greeted in the preoperative holding area where the correct side was identified and marked. The consent was reviewed with the patient and signed. All questions were answered. She was taken back to the operating room. The patient was placed into the supine position on the operating room table with the right arm on an arm board. All bony prominences were well padded. No prophylactic antibiotics were administered since this was a clean, elective hand surgical case. The right arm was then prepped with Chloraprep and draped in a standard fashion with stockinette and extremity drape. A timeout to confirm correct identity, side and site, procedure, allergies, anesthesia, and medical concerns was performed. A digital block was then performed using 1% lidocaine buffered with sodium bicarbonate. This was allowed time to set up completely and was tested before proceeding with the case. A longitudinal incision was then made overlying the mass in an ulnar parasagittal approach. The skin was incised sharply. Full-thickness flaps were then elevated to expose the mass. The mass was easily identifiable over the ulnar aspect of the finger and the relative safe zone. The overlying capsule this area was then incised and immediately there is a white, semiliquid material. This was consistent with a dystrophic calcification. This was evacuated completely. The capsule of this area was also removed. The wound was irrigated. Any other abnormal tissue was removed with a rongeur. Once again it was irrigated. Mass was completely. The skin was then closed using a #4-0 nylon in interrupted fashion. The finger was dressed with Xeroform, 4 x 4, conform dressing. The patient tolerated the procedure well and was returned to the Same Day Surgery area in a stable condition suffering no known complication.
== END 2022-04-19 08:15 | disposition home or self-care (01) ==
PROVIDERS: PCP Physician Assistant Medical; Visit Provider Student in an Organized Health Care Education/Training Program
PROC: (CPT 11421; principal; 2022-04-19 08:30)
DX: R22.31 Localized swelling, mass and lump, right upper limb (principal)
CPT/HCPCS: 11421

== ENCOUNTER 2022-04-26 11:14 | Outpatient (REF) | payer OTHER, SELFPAY | END 2022-04-26 11:15 | disposition home or self-care (01) | LOC: LBN 11:14 | PROVIDERS: PCP Physician Assistant Medical; Visit Provider Nurse Practitioner Gerontology | DX: N39.0 Urinary tract infection, site not specified (principal) | CPT/HCPCS: 87077; 87086; 87186 ==

== ENCOUNTER 2022-07-05 16:08 | Emergency (ER) | payer OTHER, SELFPAY ==
[2022-07-05 16:15] VITALS: BP 138/88; PULSE 74; RESP 18; TEMP 36.1; O2SAT 99
--- NOTE | 2022-07-05 16:30 | RT.EKG_ITS ---
APPROVED REPORT Exam: Resting ECG Reason for Exam: dizziness Patient Location: E HR:65 bpm ECG Measurements Heart Rate 65 AXIS OR 144 P 62 QRSd 86 QRS 8 QT 437 T 5 QTc 456 Conclusion Sinus rhythm...normal P axis, V-rate 60- 99 Probable left atrial enlargement...P >50mS, <-0.10mV V1
--- NOTE | 2022-07-05 16:42 | ED.GENADUL_ITS ---
Discharge Plan Disposition Patient Disposition: Home Condition: Stable Discharge Details Clinical Impression: Vertigo Primary Care Provider: Unknown,Unknown ED Provider: Magno Lacey Home Meds and New Rx's Prescriptions: New ondansetron 4 mg tablet,disintegrating 4 mg PO Q8H PRN (Reason: nausea and vomiting) Qty: 30 0RF Continued metoprolol succinate 50 mg tablet extended release 24 hr 50 mg PO DAILY levothyroxine [Synthroid] 137 mcg tablet 137 mcg PO DAILY cholecalciferol (vitamin D3) 2,000 unit capsule 2,000 unit PO DAILY cholecalciferol (vitamin D3) 1,000 unit capsule 1,000 unit PO DAILY vitamin B complex [B Complex-Vitamin B12] tablet 1 tab PO DAILY ferrous sulfate [Feosol] 325 mg (65 mg iron) tablet 325 mg PO DAILY biotin 10,000 mcg tablet,disintegrating 10,000 mcg PO DAILY Patient Comments: not taking phenazopyridine [Pyridium] 100 mg tablet 100 mg PO TID PRN (Reason: pain) Qty: 10 0RF Patient Comments: not taking fluconazole [Diflucan] 100 mg tablet 100 mg PO DIRECTED Qty: 2 0RF Patient Comments: not taking Rx Instructions: may repeat second dose 72 hrs after first dose if symptoms persist nitrofurantoin monohyd/m-cryst 100 mg capsule 100 mg PO Q12H Qty: 14 0RF Patient Comments: not taking Rx Instructions: must administer with a meal/food acetaminophen 500 mg tablet 500 mg PO Q6H PRN PRN (Reason: pain) Qty: 40 3RF ibuprofen 600 mg tablet 600 mg PO TID PRN (Reason: pain) Qty: 30 3RF Discharge Instructions Instructions: Vertigo (ED) Additional Instructions: your blood work did not show concerning findings at this time follow up with your primary care or specialist within 1-2 weeks if you feel more ill, have worsening symptoms or weakness return to the emergency department Stand Alone Forms: Work Release Medical Decision Making 51 yo female with hx of meniere's disease, htn, who comes in with cc of intermittent dizziness when turning her head. This is similar to her prior episodes associated with her meniere's disease and has been an intermittent issue for years now. She denies chest pain, dyspnea, fevers, chills. She has had nausea. She arrives stable caox4 speaking clearly. She has no focal motor or sensation deficits, normal speech, no droop, nih of 0. Her history and exam seem most consistent with peripheral vertigo and likely associated with her meniere's, will obtain ekg/troponin, cbc, cmp and trial ondansetron as she states this has helped before, declines meclizine at this time. Given lack of deficits on exam do not feel central vertigo likely and do not feel ct indicated labs reassuring, patient still with intermittent dizziness but feels somewhat better, ambulating with normal gait unassisted. Discussed with her and she feels comfortable with d/c, will f/u with her ent and return precautions given Differential Diagnosis Differential Diagnosis: meniere's, vertigo, anemia, electrolyte abnormality Lab Data Lab results reviewed: Yes I reviewed the patient's lab results. ECG Data Attestation: I personally reviewed and interpreted this ECG (s) as follows: Prior ECG tracings: not available for review Interpretation: sinus rhythm, rate of 65, pr 144, qtc 437 no acute ischemic findings HPI General Mode of arrival: ambulatory . Date/Time Provider Initiated Documentation: 07/05/22 16:09 . Limitations to Documentation: no limitations . Information obtained by: patient . History of Present Illness 51 year old F presents to the emergency department with the chief complaint of dizziness, described as moderate, Patient started experiencing this day(s) (1) and it has been intermittent. No relieving factors improve symptom(s), No exacerbating factors reported . Patient notes denies chest pain and fever/chills. Patient did receive the following treatments prior to arrival, none Related Data Home Medications Medication Instructions Recorded Confirmed levothyroxine 137 mcg tablet 137 mcg PO DAILY 02/21/18 07/05/22 (Synthroid) metoprolol succinate 50 mg 50 mg PO DAILY 02/21/18 07/05/22 tablet,extended release 24 hr biotin 10,000 mcg disintegrating 10,000 mcg PO DAILY 03/28/18 05/01/22 tablet cholecalciferol (vitamin D3) 25 1,000 unit PO DAILY 03/28/18 07/05/22 mcg (1,000 unit) capsule cholecalciferol (vitamin D3) 50 2,000 unit PO DAILY 03/28/18 07/05/22 mcg (2,000 unit) capsule ferrous sulfate 325 mg (65 mg 325 mg PO DAILY 03/28/18 07/05/22 iron) tablet (Feosol) vitamin B complex (B 1 tab PO DAILY 03/28/18 07/05/22 Complex-Vitamin B12 tablet) phenazopyridine 100 mg tablet 100 mg PO TID PRN pain #10 tabs 06/23/21 05/01/22 (Pyridium) acetaminophen 500 mg tablet 500 mg PO Q6H PRN PRN pain #40 tabs 04/19/22 07/05/22 ibuprofen 600 mg tablet 600 mg PO TID PRN pain #30 tabs 04/19/22 07/05/22 fluconazole 100 mg tablet 100 mg PO DIRECTED #2 tabs 04/26/22 05/01/22 (Diflucan) nitrofurantoin 100 mg PO Q12H #14 caps 04/26/22 05/01/22 monohydrate/macrocrystals 100 mg capsule ondansetron 4 mg disintegrating 4 mg PO Q8H PRN nausea and 07/05/22 tablet vomiting #30 tabs Previous Rx's Medication Instructions Recorded phenazopyridine 100 mg tablet 100 mg PO TID PRN pain #10 tabs 06/23/21 (Pyridium) acetaminophen 500 mg tablet 500 mg PO Q6H PRN PRN pain #40 tabs 04/19/22 ibuprofen 600 mg tablet 600 mg PO TID PRN pain #30 tabs 04/19/22 fluconazole 100 mg tablet 100 mg PO DIRECTED #2 tabs 04/26/22 (Diflucan) nitrofurantoin 100 mg PO Q12H #14 caps 04/26/22 monohydrate/macrocrystals 100 mg capsule ondansetron 4 mg disintegrating 4 mg PO Q8H PRN nausea and 07/05/22 tablet vomiting #30 tabs Allergies Allergy/AdvReac Type Severity Reaction Status Date / Time latex Allergy burning Verified 07/05/22 16:14 rash Sulfa (Sulfonamide Allergy Verified 07/05/22 16:14 Antibiotics) hydrocodone bitartrate AdvReac Severe vomiting Verified 07/05/22 16:14 [From Vicodin] oxycodone HCl [From Percocet] AdvReac Severe vomiting Verified 07/05/22 16:14 General Stated Complaint: Dizzy/Sync NIEVES: 3 Review of Systems All systems reviewed & are unremarkable except as noted in HPI and below Constitutional Constitutional: Denies chills and Denies fever(s) Cardiovascular Cardiovascular: Denies chest pain and Denies dyspnea Respiratory Respiratory: Denies cough and Denies dyspnea Gastrointestinal Gastrointestinal: Denies abdominal pain Integumentary/Breasts Skin/Breast: Denies rash PFSH All Active Problems (Updated 07/05/22 @ 18:25 by Magno Lacey MD) Vertigo (Acute) Hx of breast reduction, elective (Acute) Hx of cholecystectomy (Chronic) 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 Will D/C home today. Instructions given. No meds. needed. F/U in clinic in 6 weeks. If any problems please call clinic for appointment Hypertension (Chronic) S/P section (Acute) X 2 Status post bariatric surgery (Acute) Menorrhagia (Acute 09/02/13) Long standing worsening menorrhagia secondary to uterine fibroids. Desires permanent treatment and therefore desires hysterectomy. Plan a TVH/BS on 04/03/18. Have discussed case with Dr. Venegas who will assist in surgery. Will need medical clearance prior to surgery. Hypothyroidism, acquired (Acute 09/10/13) Medical History (Updated 07/05/22 @ 18:25 by Magno Lacey MD) Frequent UTI Surgical History (Updated 05/03/22 @ 18:26 by MADELINE Morfin) Finger mass, right Right index finger S/P Excision: 04/19/2022 Family History Mother Stroke Thyroid disease Father Hypertension Maternal Aunt Breast cancer Social History Smoking/Tobacco Use Status: Never Smoking risk assessment performed?: Yes Alcohol Intake: current Alcohol Intake frequency: holidays/special occasions only Drug use: Never Number of Children: 2 Do you feel safe at home: Yes Female Reproductive History Menstrual control method: permanent sterilization Menopause type: surgical History History 2 Para 2 Hx # Term Pregnancies Multiple births Hx # Pregnancies Ectopic pregnancies AB induced Hx Number of Living Children AB spontaneous Exam Const General: no acute distress Orientation: alert HENMT Head: normal to inspection Ears: external ears normal General nose exam: external nose normal Mouth: moist mucous membranes Eyes General: appearance normal, both eyes and all related structures Neck Neck: normal visual inspection Resp Effort & Inspection: normal respiratory effort and able to speak in complete sentences Cardio Rate: regular rate Skin General skin exam: no rashes or lesions noted Neuro General: patient alert and patient oriented x3 Extrem General: normal to inspection Psych Mental Status: mental status grossly normal Course Vital Signs Vital signs: Vital Signs Temperature 36.1 C L 07/05/22 16:15 Pulse 74 07/05/22 16:15 Respiratory Rate 18 07/05/22 16:15 Blood Pressure 138/88 07/05/22 16:15 Pulse Oximetry 99 07/05/22 16:15 Temperature 36.1 C L 07/05/22 16:15 Temperature Source Tympanic 07/05/22 16:15 Pulse 74 07/05/22 16:15 Respiratory Rate 18 07/05/22 16:15 Respiratory Effort Normal, Non-Labored 07/05/22 16:13 Blood Pressure 138/88 07/05/22 16:15 Pulse Oximetry 99 07/05/22 16:15 Oxygen Delivery Method Room Air 07/05/22 16:15 Oxygen Flow Rate 0 07/05/22 16:15
[2022-07-05] MEDS: Normal Saline 1,000 ML 1000 ML IV (16:55)
[2022-07-05 16:58] LABS: Abs Immature Grans 0.03 10^3/uL (0.0-0.06); Absolute Basophil Count 0.03 10^3/uL (0.0-0.2); Absolute Eosinophil Count 0.03 10^3/uL (0.0-0.7); Absolute Lymphocyte Count 2.04 10^3/uL (1.2-3.4); Absolute Monocyte Count 0.51 10^3/uL (0.1-0.8); Absolute Neutrophil Count 6.72 10^3/uL (1.2-6.7); Basophils % 0.3; Eosinophils % 0.3; HCT 45.2 % (36.0-46.0); HGB 15.3 g/dL (11.2-15.7); Immature Grans % 0.3; Lymphocytes % 21.8; MCH 29.9 pg (27.0-33.0); MCHC 33.8 % (32.0-36.0); MCV 88 fL (80-95); MPV 10.5 fL (8.0-11.0); Monocytes % 5.4; Neutrophils % 71.9; Platelet Count 310 10^3/uL (130-400); RBC 5.12 10^6/uL (3.93-5.22); RDW 12.3 % (11.7-14.6); RDW-SD 40.4 fL; WBC 9.36 10^3/uL (4.4-10.8)
[2022-07-05] MEDS: Ondansetron 4 MG/2 ML VIAL IVP (17:10)
[2022-07-05 17:20] VITALS: RESP 18
[2022-07-05 17:22] LABS: TSH (W/Ref FT4) 13.57 uIU/mL (0.36-3.74); Troponin I < 50 ng/L (<or=60)
[2022-07-05 17:41] LABS: FREE T4 1.03 ng/dL (0.76-1.46)
[2022-07-05 18:11] LABS: ALT 18 U/L (14-59); AST 14 U/L (15-37); Albumin 3.7 g/dL (3.4-5.0); Alkaline Phosphatase 66 U/L (46-116); Anion Gap 12.7 mmol/L (3-11); BUN 11 mg/dL (7-18); Bilirubin, Total 0.5 mg/dL (0.2-1.0); CO2 25.3 mmol/L (21.0-32.0); CREATININE 0.9 mg/dL (0.55-1.02); Calcium 8.9 mg/dL (8.5-10.1); Chloride 103 mmol/L (98-107); Glucose 120 mg/dL (74-106); Magnesium 1.9 mg/dL (1.8-2.4); Potassium 3.4 mmol/L (3.5-5.1); Sodium 141 mmol/L (136-145); Total Protein 7.5 g/dL (6.4-8.2)
--- NOTE | 2022-07-05 18:24 | NUR.NOTE ---
pt ambulatory with a steady gait to restroom. improvement in dizziness and nausea.
== END 2022-07-05 18:41 | disposition home or self-care (01) ==
PROVIDERS: Emergency Provider Emergency Medicine
DX: R42 Dizziness and giddiness (principal); I10 Essential (primary) hypertension
CPT/HCPCS: 36415; 80053; 93005; 96361; 96374; 99284; 83735; 84439; 84443; 84484; 85025; 93010; J2405

== ENCOUNTER 2022-08-02 01:07 | Outpatient (CLI) | payer OTHER, SELFPAY ==
--- NOTE | 2022-08-02 09:00 | DI.MAMMO_ITS ---
Exam(s) MAMMO SCREENING EXAM: MAMMO SCREENING CLINICAL HISTORY: screening,z12.39 TECHNIQUE: Mammograms were interpreted according to the usual protocol including computer analysis w [employer] CAD system, tomosynthesis and C-view imaging. COMPARISON: 2013 through 2018 FINDINGS: The breasts are composed of mainly fatty density , Breast Density category A. No suspicious masses or suspicious microcalcifications are seen. No skin thickening or abnormal axillary lymph nodes are seen. There has been no significant change from prior exams. IMPRESSION: BI-RADS Category 1, Negative mammogram Yearly screening mammography is recommended. Breast Density - Category A, fatty density. A negative radiographic report should not delay biopsy if a dominant or clinically suspicious mass is present. Up to ten percent of cancers are not identified on mammography. A negative report may reinforce clinical impression. Adenosis and dense breasts may obscure an underlying neoplasm. False positive reports average 6 to 10%. Patient will receive a letter notifying them of these results.
== END 2022-08-02 01:27 ==
PROVIDERS: PCP Nurse Practitioner Family; Visit Provider Obstetrics & Gynecology Gynecology
DX: Z12.31 Encounter for screening mammogram for malignant neoplasm of breast (principal)
CPT/HCPCS: 77063; 77067

== ENCOUNTER 2022-08-18 01:20 | Outpatient (CLI) | payer OTHER, SELFPAY ==
[2022-08-18 13:20] LABS: Abs Immature Grans 0.01 10^3/uL (0.0-0.06); Absolute Basophil Count 0.01 10^3/uL (0.0-0.2); Absolute Eosinophil Count 0.02 10^3/uL (0.0-0.7); Absolute Lymphocyte Count 1.88 10^3/uL (1.2-3.4); Absolute Monocyte Count 0.49 10^3/uL (0.1-0.8); Absolute Neutrophil Count 5.83 10^3/uL (1.2-6.7); Basophils % 0.1; Eosinophils % 0.2; HCT 43.9 % (36.0-46.0); HGB 14.9 g/dL (11.2-15.7); Immature Grans % 0.1; Lymphocytes % 22.8; MCH 29.8 pg (27.0-33.0); MCHC 33.9 % (32.0-36.0); MCV 88 fL (80-95); Monocytes % 5.9; Neutrophils % 70.9; Platelet Count 300 10^3/uL (130-400); RDW 11.9 % (11.7-14.6); RDW-SD 38.2 fL; WBC 8.24 10^3/uL (4.4-10.8)
[2022-08-18 14:01] LABS: Iron 53 ug/dL (50-170); Total Iron Binding Capacity 316 ug/dL (250-450); Transferrin Sat 17 % (15-50)
[2022-08-18 14:19] LABS: Folate 15.7 ng/mL (8.6-20.0)
[2022-08-18 14:25] LABS: Vitamin D 25 Total 30.9 ng/mL (30-100)
[2022-08-18 14:31] LABS: ALT 20 U/L (14-59); AST 18 U/L (15-37); Albumin 3.5 g/dL (3.4-5.0); Alkaline Phosphatase 59 U/L (46-116); Anion Gap 11.7 mmol/L (3-11); BUN 9 mg/dL (7-18); Bilirubin, Total 0.8 mg/dL (0.2-1.0); CO2 25.3 mmol/L (21.0-32.0); CREATININE 0.9 mg/dL (0.55-1.02); Calculated LDL 76 mg/dL (<100); Chloride 105 mmol/L (98-107); Cholesterol 172 mg/dL (<200); Estimated GFR 76.92 (mL/min/1.73m2); Ferritin 132 ng/mL (8-252); Glucose 100 mg/dL (74-106); HDL Cholesterol 74 mg/dL (40-60); Potassium 3.6 mmol/L (3.5-5.1); Sodium 142 mmol/L (136-145); TSH (W/Ref FT4) 0.05 uIU/mL (0.36-3.74); Total Protein 7.5 g/dL (6.4-8.2); Triglyceride 114 mg/dL (<150); Vitamin B12 361 pg/mL (193-986)
[2022-08-18 15:11] LABS: FREE T4 1.57 ng/dL (0.76-1.46)
[2022-08-21 13:03] LABS: Selenium, Serum 147 mcg/L (110-165); Zinc, S 62 mcg/dL (60-106)
[2022-08-22 00:30] LABS: Vitamin E, Serum 9.6 mg/L (5.5 - 17.0)
[2022-08-22 13:56] LABS: Vitamin K1 0.14 ng/mL (0.10-2.20)
[2022-08-22 16:48] LABS: Thiamine (Vitamin B1), WB 132 nmol/L (70-180)
[2022-08-22 20:37] LABS: Ascorbic Acid (Vit C), Plasma 0.8 mg/dL (0.4 - 2.0)
[2022-08-23 08:30] LABS: Free Retinol (Vitamin A) 36.6 mcg/dL (32.5-78.0)
== END 2022-08-18 01:21 | disposition home or self-care (01) ==
LOC: LBO 01:20
PROVIDERS: PCP Nurse Practitioner Family; Referring Provider Nurse Practitioner Family; Visit Provider Nurse Practitioner Family
DX: Z98.84 Bariatric surgery status (principal); Z13.1 Encounter for screening for diabetes mellitus; E55.9 Vitamin D deficiency, unspecified; Z13.220 Encounter for screening for lipoid disorders; E03.9 Hypothyroidism, unspecified
CPT/HCPCS: 80053; 80061; 82306; 84630; 82180; 82607; 82728; 82746; 83540; 83550; 84255; 84425; 84439; 84443; 84446; 84590; 84597; 85025

== ENCOUNTER 2022-09-20 09:13 | Outpatient (REF) | payer OTHER, SELFPAY ==
[2022-09-20 09:43] LABS: ALT 18 U/L (14-59); AST 15 U/L (15-37); Albumin 3.7 g/dL (3.4-5.0); Alkaline Phosphatase 72 U/L (46-116); Anion Gap 8.4 mmol/L (3-11); BUN 20 mg/dL (7-18); Bilirubin, Total 0.5 mg/dL (0.2-1.0); CO2 26.6 mmol/L (21.0-32.0); CREATININE 0.9 mg/dL (0.55-1.02); Chloride 105 mmol/L (98-107); Estimated GFR 76.92 (mL/min/1.73m2); Glucose 85 mg/dL (74-106); Potassium 3.7 mmol/L (3.5-5.1); Sodium 140 mmol/L (136-145)
== END 2022-09-20 09:14 | disposition home or self-care (01) ==
LOC: LBN 09:13
PROVIDERS: PCP Nurse Practitioner Family; Visit Provider Specialist/Technologist Athletic Trainer
DX: H81.02 Meniere's disease, left ear (principal)
CPT/HCPCS: 80053

== ENCOUNTER 2022-09-26 13:41 | Outpatient (REF) | payer OTHER, SELFPAY ==
[2022-09-26 14:33] LABS: TSH (W/Ref FT4) 0.07 uIU/mL (0.36-3.74)
[2022-09-26 14:50] LABS: FREE T4 1.23 ng/dL (0.76-1.46)
== END 2022-09-26 13:42 | disposition home or self-care (01) ==
LOC: LBN 13:41
PROVIDERS: PCP Nurse Practitioner Family; Visit Provider Nurse Practitioner Family
DX: E03.9 Hypothyroidism, unspecified (principal)
CPT/HCPCS: 84439; 84443

== ENCOUNTER 2022-11-03 14:17 | Outpatient (REF) | payer OTHER, SELFPAY ==
[2022-11-03 15:11] LABS: TSH (W/Ref FT4) 0.06 uIU/mL (0.36-3.74); Vitamin B12 782 pg/mL (193-986)
[2022-11-03 15:33] LABS: FREE T4 1.15 ng/dL (0.76-1.46)
== END 2022-11-03 14:18 | disposition home or self-care (01) ==
LOC: LBN 14:17
PROVIDERS: PCP Nurse Practitioner Adult Health; Visit Provider Nurse Practitioner Family
DX: E53.8 Deficiency of other specified B group vitamins (principal); E03.9 Hypothyroidism, unspecified; I10 Essential (primary) hypertension
CPT/HCPCS: 82607; 84439; 84443

== ENCOUNTER 2022-12-26 12:47 | Outpatient (REF) | payer OTHER, SELFPAY ==
[2022-12-26 14:25] LABS: TSH (W/Ref FT4) 2.22 uIU/mL (0.36-3.74)
== END 2022-12-26 12:48 | disposition home or self-care (01) ==
LOC: LBN 12:47
PROVIDERS: PCP Nurse Practitioner Adult Health; Visit Provider Nurse Practitioner Family
DX: E03.9 Hypothyroidism, unspecified (principal)
CPT/HCPCS: 84443

== ENCOUNTER 2023-06-27 13:45 | Outpatient (CLI) | payer OTHER, SELFPAY ==
[2023-06-27 15:19] LABS: Abs Immature Grans 0.03 10^3/uL (0.0-0.06); Absolute Basophil Count 0.03 10^3/uL (0.0-0.2); Absolute Eosinophil Count 0.03 10^3/uL (0.0-0.7); Absolute Lymphocyte Count 2.08 10^3/uL (1.2-3.4); Absolute Monocyte Count 0.49 10^3/uL (0.1-0.8); Absolute Neutrophil Count 4.49 10^3/uL (1.2-6.7); Basophils % 0.4; Eosinophils % 0.4; HCT 46.1 % (36.0-46.0); HGB 15.1 g/dL (11.2-15.7); Immature Grans % 0.4; Lymphocytes % 29.1; MCH 29.2 pg (27.0-33.0); MCHC 32.8 % (32.0-36.0); MCV 89 fL (80-95); MPV 10.8 fL (8.0-11.0); Monocytes % 6.9; Neutrophils % 62.8; Platelet Count 311 10^3/uL (130-400); RBC 5.17 10^6/uL (3.93-5.22); RDW 12.1 % (11.7-14.6); RDW-SD 39.6 fL; WBC 7.15 10^3/uL (4.4-10.8)
[2023-06-27 16:30] LABS: Vitamin D 25 Total 52.3 ng/mL (30-100)
[2023-06-27 16:31] LABS: ALT 17 U/L (14-59); AST 15 U/L (15-37); Albumin 3.8 g/dL (3.4-5.0); Alkaline Phosphatase 57 U/L (46-116); Anion Gap 11.5 mmol/L (3-11); BUN 17 mg/dL (7-18); Bilirubin, Total 0.8 mg/dL (0.2-1.0); CO2 27.5 mmol/L (21.0-32.0); CREATININE 0.8 mg/dL (0.55-1.02); Calcium 9.3 mg/dL (8.5-10.1); Calculated LDL 99 mg/dL (<100); Chloride 107 mmol/L (98-107); Cholesterol 198 mg/dL (<200); Glucose 84 mg/dL (74-106); HDL Cholesterol 81 mg/dL (40-60); Potassium 4.1 mmol/L (3.5-5.1); Sodium 146 mmol/L (136-145); TSH (W/Ref FT4) 0.01 uIU/mL (0.36-3.74); Total Protein 7.3 g/dL (6.4-8.2); Triglyceride 90 mg/dL (<150); Vitamin B12 364 pg/mL (193-986)
[2023-06-27 16:58] LABS: Hemoglobin A1C 5.1 % (<5.7)
== END 2023-06-27 13:46 | disposition home or self-care (01) ==
LOC: LBO 13:47
PROVIDERS: Visit Provider Nurse Practitioner Family
DX: E78.5 Hyperlipidemia, unspecified (principal); I10 Essential (primary) hypertension; E66.9 Obesity, unspecified
CPT/HCPCS: 36415; 80053; 80061; 82306; 82607; 83036; 84439; 84443; 85025

== ENCOUNTER 2023-07-30 08:45 | Outpatient (CLI) | payer OTHER, SELFPAY ==
[2023-07-30 09:51] LABS: TSH (W/Ref FT4) 1.66 uIU/mL (0.36-3.74)
== END 2023-07-30 08:46 | disposition home or self-care (01) ==
LOC: LBO 08:46
PROVIDERS: Visit Provider Nurse Practitioner Family
DX: E03.9 Hypothyroidism, unspecified (principal)
CPT/HCPCS: 36415; 84443

== ENCOUNTER → 2023-08-15 01:39 | Outpatient (CLI) | payer OTHER, SELFPAY ==
--- NOTE | 2023-08-15 | DI.MAMMO_ITS ---
Exam(s) MAMMO SCREENING EXAM: MAMMO SCREENING CLINICAL HISTORY: Z12.31 Screening TECHNIQUE: Mammograms were interpreted according to the usual protocol including computer analysis w [employer] CAD system, tomosynthesis and C-view imaging. COMPARISON: 2013 through 2022 FINDINGS: The breasts are composed of mainly fatty density , Breast Density category A. No suspicious masses or suspicious microcalcifications are seen. No skin thickening or abnormal axillary lymph nodes are seen. There has been no significant change from prior exams. IMPRESSION: BI-RADS Category 1, Negative mammogram Yearly screening mammography is recommended. Breast Density - Category A, fatty density. A negative radiographic report should not delay biopsy if a dominant or clinically suspicious mass is present. Up to ten percent of cancers are not identified on mammography. A negative report may reinforce clinical impression. Adenosis and dense breasts may obscure an underlying neoplasm. False positive reports average 6 to 10%. Patient will receive a letter notifying them of these results.
== END ==
PROVIDERS: PCP Nurse Practitioner Family; Visit Provider Nurse Practitioner Family
DX: Z12.31 Encounter for screening mammogram for malignant neoplasm of breast (principal)
CPT/HCPCS: 77063; 77067

== ENCOUNTER 2024-02-11 14:43 | Outpatient (CLI) | payer OTHER, SELFPAY | END 2024-02-11 14:44 | disposition home or self-care (01) | LOC: LBO 14:44 | PROVIDERS: PCP Nurse Practitioner Family; Visit Provider Nurse Practitioner Family | DX: E03.9 Hypothyroidism, unspecified (principal) | CPT/HCPCS: 36415; 84443 ==

== ENCOUNTER 2024-05-05 01:47 | Outpatient (CLI) | payer OTHER, SELFPAY ==
--- NOTE | 2024-05-05 07:15 | DI.MAMMO_ITS ---
Exam(s) MG MAMMO DIAGNOSTIC BI US BREAST LT LIMITED EXAM: MG MAMMO DIAGNOSTIC BI and U/S breast LT limited CLINICAL HISTORY: L breast pain,h/o breast reduction,n64.4,z98.890. TECHNIQUE: Craniocaudal and mediolateral oblique Full Field Digital Mammography views with Computer Aided Diagnosis followed by Tomosynthesis and limited left breast ultrasound. COMPARISON: Comparison is made with prior examinations. FINDINGS: Mammography/Tomosynthesis: Masses/Architectural Distortion: None seen. Microcalcifictions: No suspicious pleomorphic-type are seen. Skin Thickening/Nipple Retraction: None. Limited left breast US: Echotexture: Normal appearance of the glandular tissue. Shadowing: No suspicious foci. Cyst: None. Solid lesions: None seen. Ductal dilation: None. IMPRESSION: 1. No evidence of malignancy is noted. 2. Unless there is more urgent need, follow-up screening mammography is recommended, as per [employer] guidelines. 3. The findings were discussed with the patient on the date of the examination. BI-RADS Category 1 - Negative Breast Density - Category B - Scattered areas of fibroglandular density Breast density Category C or D implies that the patient has dense breast tissue. Dense breast tissue can make it harder to find cancer on a mammogram. Dense breast tissue is also associated with an incr eased risk of breast cancer. This information about the result of the mammogram report was provided to the patient to raise their awareness. Use this report when you speak with the patient about their risks for breast cancer, which includes their family history. At that time, you may recommend additional screening tests (Ultrasoun d or MRI) as these tests may add significant information. A negative radiographic report should not delay biopsy if a dominant or clinically suspicious mass is present. Up to ten percent of cancers are not identified on mammography. A negative report may reinforce clinical impression. Adenosis and dense breasts may obscure an underlying neoplasm. False positive reports average 6 to 10%. Patient will receive a letter notifying them of these results.
== END 2024-05-05 02:07 ==
LOC: DI 01:48
PROVIDERS: PCP Nurse Practitioner Family; Visit Provider Obstetrics & Gynecology Gynecology
DX: N64.4 Mastodynia (principal); Z98.890 Other specified postprocedural states; Z12.31 Encounter for screening mammogram for malignant neoplasm of breast
CPT/HCPCS: 76642; 77062; 77066; G0279